=== PATIENT | male | born 1970 | race Caucasian/White ===

== ENCOUNTER 2024-09-27 18:20 | Emergency (ER) | payer OTHER, SELFPAY ==
[2024-09-27 18:32] VITALS: BP 134/96
--- NOTE | 2024-09-27 21:05 | ED.GENMED ---
History of Present Illness
General
Chief Complaint: Crisis Evaluation
Source: patient
Exam Limitations: none
Time Seen by Provider: 09/27/24 18:47
Nursing documentation reviewed up to this point in time: agreed with
History of Present Illness
History of Present Illness:
The patient is a 54-year-old man who reports that alcohol has been a problem for him for many years. He admits that for the last several years he uses it to self medicate and be able to sleep. He and his sister reports that his alcoholism has
ruined relationships with his siblings and the rest of the family. The patient reports that he got notified last night that he lost his job from [employer] and this triggered him to ' go on a downward spiral'. This also caused him to text
his ex- that he was having thoughts of hurting himself. His ex- notified his siblings of his text messages, and his siblings subsequently called police to do a well check. Patient tells me that he does not want to hurt himself. Rather, he
wants to get help. He denies physical pain. Patient thinks he is interested in going into rehab. He reports he has been in rehab multiple times. Currently he is unemployed. He lives in an apartment alone. He reports that his kids are in
college. Reports has been difficult for him to keep a job. He reports that he has financial problems and is worried about paying his apartment rent and buying groceries. He denies physical pain. He reports that he has never experienced severe
alcohol withdrawal nor DTs. He reports that when he does not drink he just feels slightly anxious.
Past History
Past History
ED Past Medical History: Psychiatric (Depression) and Other (Chronic alcohol use)
ED Past Surgical History: Orthopedic (Shoulder surgery)
Social History
Tobacco: Non-smoker
Alcohol: Chronic alcoholic
Drug: None
Personal:
Living: alone
Employment: Not employed
Family History
Family History: CAD (father)
Review of Systems
Review of Systems
Allergies reviewed?: Yes
All Other Systems: ROS reviewed and negative except as documented in HPI and ROS
Constitutional: Reports fatigue
EENT: Reports no symptoms
Respiratory: Reports no symptoms
Cardiac: Reports no symptoms
ABD/GI: Reports no symptoms
: Reports no symptoms
Musculoskeletal: Reports no symptoms
Skin: Reports no symptoms
Neurological: Reports no symptoms
Endocrine: Reports no symptoms
Hematologic/Lymphatic: Reports no symptoms
Psychiatric: Reports depression
Phy Exam
Physical Exam
Physical Exam:
Physical Exam
General: Patient appears intoxicated. But is conversational and cooperative. At times is tearful
Neck: supple. no meningeal signs. normal psoterior pharynx
Heart: s1/s2 regular rate and rhythm, no murmur. equal radial pulses.
Lungs: no acute respiratory distress. clear bilaterally
Abdomen: normal bowel sounds. not tender. no CVAT
Neuro: alert and oriented. no focal neurological deficits
Skin: no rash
Psychiatric: well kept. interactive and cooperative
Extremities: no edema. no calf tenderness. negative homans. good distal pulses
Course
Orders/Labs/Results
Orders:
Orders
09/27/24 18:31
1:1 Observation - Suicide/ Violent Behavior As Directed
Crisis Consult Urgent
Reason for Consult: +SI
Vital Signs
Initial and Last Documented VS:
Initial Vital Signs
Temp Pulse Resp BP Pulse Ox
98.6 F 108 18 134/96 99
09/27/24 18:32 09/27/24 18:32 09/27/24 18:32 09/27/24 18:32 09/27/24 18:32
Last Documented Vital Signs
Temp Pulse Resp BP Pulse Ox
98.6 F 102 18 127/82 99
09/27/24 18:32 09/27/24 21:24 09/27/24 21:24 09/27/24 21:24 09/27/24 21:24
MDM/Problems Addressed
Differential Diagnosis Includes:
Acute alcohol intoxication, passive suicidal thoughts, acute depressive episode,
MDM/Problems Addressed:
Patient presents with feelings of wanting to get help for his alcohol abuse
Chronic conditions affecting care: Psychiatric illness
Acute Exacerbation and/or Progression of Chronic Illness: Psychiatric illness
*Pulse Oximetry
Patient hypoxic: no
*EKG
Interpreted by ED Provider?: NA
*Floral Design Teacher Interpretation
Rate: Floral Design Teacher- N/A
*Critical Care Note
Total Time (30-74mins, 75-104mins- exclusive of procedures): Not Applicable
Data Reviewed
Source: patient and family (Sister who is at the bedside)
Patient Management
Social determinants of health affecting care: Living situation (Lives alone, financial issues)
Discussion with other providers: Other (I spoke to Silvana G[facility] worker who reports that she will contact the patient to discuss rehab placement. [facility] came to evaluate patient. They do not feel there is an emergent psychiatric issue
that requires inpatient psychiatric management. )
ED Attending Note
-
Portions of this chart may have been created with voice recognition software.� Occasional wrong word or��sound alike� substitutions may have occurred due to the inherent limitations of voice recognition software.
Discharge Plan
Departure
Patient with high blood pressure during this ER visit?: Yes
Condition: Fair
Covid-19: Not Applicable
Prescriptions:
No Action
ibuprofen 600 MG tablet
600 mg PO Q6HPRN PRN (Reason: Pain) Qty: 30 0RF
acetaminophen-codeine 300-30 mg Tablet
1 tab PO Q4HPRN PRN (Reason: pain) Qty: 8 0RF
Referrals:
Alejandro Blanco, [Family Provider] -
Interventions
Interventions:
*Risk Screen - Suicide Last Done: 09/27/24 18:30
*General Assessment Last Done: 09/27/24 18:33
*Neglect/Abuse Screening Last Done: 09/27/24 18:33
*ED COVID-19 Vaccine History Last Done: 09/27/24 18:32
ED-Psychological Assessment Last Done: 09/27/24 19:36
Discharge Date and Time
Print Language: BRUNEIAN
[2024-09-27 21:24] VITALS: BP 127/82
[2024-09-27] MEDS: NICODERM TRANSDERMAL 14 MG TRANSDERM (22:49)
[2024-09-27 22:52] VITALS: BMI 27.4
[2024-09-28] MEDS: MAALOX 30 ML PO (03:24)
[2024-09-28 03:30] VITALS: BP 148/90
--- NOTE | 2024-09-28 08:32 | ED.ATTNOTE ---
ED Attending Note
ED Attending Note
ED Attending Note:
54-year-old male who is here pending placement for alcohol rehabilitation. This morning he says he is having some shakiness, anxiety, nausea. On exam he has mild intention tremor, no diaphoresis, vital stable. Concern for some mild early alcohol
withdrawal symptoms. Treat with low-dose p.o. Ativan. Plan for [facility] this morning.
-
Portions of this chart may have been created with voice recognition software.� Occasional wrong word or��sound alike� substitutions may have occurred due to the inherent limitations of voice recognition software.
[2024-09-28] MEDS: ATIVAN 0.5 MG PO (08:34)
[2024-09-28 11:38] VITALS: BP 161/98
== END 2024-09-28 11:40 ==
LOC: EMR 18:20
PROVIDERS: EMERGENCY PHYSICIAN Emergency Medicine; FAMILY PHYSICIAN Family Medicine
DX: F10.20 Alcohol dependence, uncomplicated (principal); Z59.86 Financial insecurity; Z56.0 Unemployment, unspecified; Z82.49 Family history of ischemic heart disease and other diseases of the circulatory system
CPT/HCPCS: 99283

== ENCOUNTER 2025-01-25 15:22 | Emergency (ER) | payer OTHER, SELFPAY ==
[2025-01-25 15:25] VITALS: BP 134/98
[2025-01-25 15:55] LABS: Hematocrit 45.4 % (39.0-52.0); Hemoglobin 16.2 g/dL (13.0-18.0); Mean Corp Hgb Conc. 35.7 g/dL (33.0-37.0); Mean Corpuscular Volume 89.5 fL (80.0-94.0); Nucleated Red Blood Cells % 0 % (-); Platelet Count 237 10^3/uL (130-400); Red Cell Dist. Width 13.4 % (11.5-14.5)
[2025-01-25 16:05] LABS: ALT (SGPT) 21 U/L (0-50); AST (SGOT) 32 U/L (17-59); Albumin 4.8 g/dl (3.5-5.0); Alkaline Phosphatase 55 U/L (38-126); Blood Urea Nitrogen 9 mg/dl (9-20); Calcium 9.5 mg/dl (8.4-10.2); Carbon Dioxide 26 mmol/L (22-30); Chloride 100 mmol/L (98-107); Glucose 114 mg/dl (70-99); Potassium 3.8 mmol/L (3.5-5.1); Sodium 135 mmol/L (135-145); Total Protein 7.7 g/dl (6.3-8.2); eGFR > 60.00
--- NOTE | 2025-01-25 19:56 | ED.GENMED ---
History of Present Illness
General
Chief Complaint: Alcohol Problem
Time Seen by Provider: 01/25/25 19:38
Nursing documentation reviewed up to this point in time: agreed with
History of Present Illness
History of Present Illness:
54-year-old male presents to the ER for evaluation of alcohol use disorder. Patient admits that he has been drinking between 3 and 5 [employer] bottles of vodka daily for the last several days. He does have a prior history of alcoholism and has
previously been to rehab. He denies any prior personal history of alcohol withdrawal seizures. He has been feeling extremely anxious but cannot differentiate if it is related to alcohol withdrawal versus his baseline anxiety. He is willing to
sign himself in for rehab. He states he has been feeling otherwise well. No recent for cold symptoms. No fevers or chills. No vomiting. He denies abdominal pain.
Past History
Past History
ED Past Medical History: Psychiatric (Depression) and Other (Chronic alcohol use)
ED Past Surgical History: Orthopedic (Shoulder surgery)
Social History
Tobacco: Non-smoker
Alcohol: Chronic alcoholic
Drug: None
Personal:
Living: alone
Employment: Not employed
Family History
Family History: CAD (father)
Phy Exam
Physical Exam
Physical Exam:
Patient is awake, alert, appears in no acute distress, mild tachycardia noted, mucous membranes moist, sclera anicteric, conjunctiva pink, heart regular rate and rhythm no murmurs or ectopy, lungs are clear to auscultation no wheeze or rhonchi,
abdomen is soft and nontender, extremities without edema, he has scattered areas of blanching induration and excoriation on his extremities consistent with recent mosquito bites reported by the patient, GCS is 15, no tremulousness
Scores
Withdrawal Assessment of Alcohol
Withdrawal Assessment Completed?: Yes
Nausea and Vomiting: No nausea and no vomiting
Tactile Disturbances: None
Tremor: No tremor
Auditory Disturbances: Not present
Paroxysmal Sweats: No sweat visible
Visual Disturbances: Not present
Anxiety: No anxiety, at ease
Headache, Fullness in Head: Not present
Agitation: Normal activity
Orientation and clouding of sensorium: Oriented and can do serial additions
Total CIWA Score: 0
Alcohol Withdrawal Medication Recommendation: Equal to MSAS Score 0-4. Monitor & re-assess q2hrs, NO MEDICATION NEEDED
Course
Orders/Labs/Results
Orders:
Orders
01/25/25 15:38
Alcohol Urgent
Complete Blood Count/With Diff Urgent
Comprehensive Metabolic Panel Urgent
01/25/25 19:51
Diazepam [Valium] 5 mg PO NOW STA
Abnormal Lab Results
01/25/25
15:38
MCH 32.0 H pg
(27.0-31.0)
Monocytes % 9.5 H %
(1.7-9.3)
Glucose 114 H mg/dl
(70-99)
01/25/25 15:38
01/25/25 15:38
LFTs within normal limits. Kidney function preserved. CBC also normal. Alcohol level not elevated
Vital Signs
Initial and Last Documented VS:
Initial Vital Signs
Temp Pulse Resp BP Pulse Ox
98.6 F 124 16 134/98 96
01/25/25 15:25 01/25/25 15:25 01/25/25 15:25 01/25/25 15:25 01/25/25 15:25
Last Documented Vital Signs
Temp Pulse Resp BP Pulse Ox
98.6 F 102 28 126/89 96
01/25/25 15:25 01/25/25 21:08 01/25/25 21:08 01/25/25 21:07 01/25/25 21:04
Consults
Consults
Consults for patient: Crisis (Patient currently being interviewed by crisis for placement)
MDM/Problems Addressed
Differential Diagnosis Includes:
Differential diagnosis to consider but not limited to acute alcohol withdrawal, dehydration, alcohol use disorder, exacerbation of chronic anxiety along with other etiologies considered
Chronic conditions affecting care:
Alcohol use disorder, anxiety
*Pulse Oximetry
SaO2: 96
Oxygen Mode of Delivery: Room air
Patient hypoxic: no
*Critical Care Note
Total Time (30-74mins, 75-104mins- exclusive of procedures): Not Applicable
Update Note
Update Note:
Patient was evaluated by hot mill worker at time of my assessment. Patient is excepted to the [facility] [place]. She is working on transport and preauthorization. Patient was given Valium given his feeling of severe anxiety, likely multifactorial, no
overt evidence for acute alcohol withdrawal syndrome. Patient is medically cleared for disposition
ED Attending Note
-
Portions of this chart may have been created with voice recognition software.� Occasional wrong word or��sound alike� substitutions may have occurred due to the inherent limitations of voice recognition software.
Discharge Plan
Departure
Patient Disposition: Other
Date of Disposition: 01/25/25
Time of Disposition: 21:19
Discharge Problem:
Alcohol use disorder
Instructions: Alcohol Use Disorder (DC)
Prescriptions:
No Action
No Current Medications
0
Hospital Transfer
Other hospital: [facility]
Reason for transfer: medical necessity and specialties available
Interventions
Interventions:
*General Assessment Last Done: 01/25/25 21:04
*Neglect/Abuse Screening Last Done: 01/25/25 21:04
*ED- Fall Risk Assessment Last Done: 01/25/25 21:04
*ED COVID-19 Vaccine History Last Done: 01/25/25 21:04
ED- Neurological Assessment Last Done: 01/25/25 21:04
ED-Psychological Assessment Last Done: 01/25/25 21:04
Discharge Date and Time
Print Language: TURKMEN
[2025-01-25] MEDS: VALIUM 5 MG PO (20:01)
[2025-01-25 21:04] VITALS: BMI 29.2
[2025-01-25 21:07] VITALS: BP 126/89
== END 2025-01-25 22:01 | disposition home or self-care (01) ==
LOC: EMR 15:22
PROVIDERS: Emergency Medicine; EMERGENCY PHYSICIAN Emergency Medicine
DX: F10.90 Alcohol use, unspecified, uncomplicated (principal); F41.9 Anxiety disorder, unspecified
CPT/HCPCS: 99283; 80053; 82077; 85025